=== PATIENT | female | born 1940 | race Two or more races ===

== ENCOUNTER 2025-03-12 15:16 | Emergency (ER) | payer OTHER ==
[~2025-03-12] VITALS: Ht 162.6 cm; Wt 102.1 kg
[2025-03-12] MEDS ORDERED: COZAAR100 MG PO (15:44)
[2025-03-12] MEDS ORDERED: BENZONATATE 200 MG CAPSULE PO ONE (16:30)
[2025-03-12] MEDS ORDERED: LEVALBUTEROL HCL 0.63 MG/3 ML SOLUTION IH ONE (16:30)
[2025-03-12] MEDS ORDERED: IPRATROPIUM BROMIDE 0.5 MG/2.5 ML AMPUL.NEB IH ONE (16:30)
[2025-03-12] MEDS ORDERED: MAGNESIUM SULFATE IN WATER 2 GM/50 ML PIGGYBAG IV ONE (16:30)
[2025-03-12] MEDS ORDERED: METHYLPREDNISOLONE SOD SUCC 125 MG VIAL IV ONE (16:30)
[2025-03-12 16:49] LABS: BASO % 0.8 % (0.1-1.2); EOS # 0.21 (0.04-0.54); EOS % 2.4 % (0.7-7.0); LYMPH # 2.34 (1.18-3.74); LYMPH % 27.2 % (19.3-53.1); MEAN PLATELET VOLUME 9.40 fl (9.4-12.4); MONO # 0.84 (0.24-0.82); MONO % 9.8 % (4.7-12.5); NEUT # 5.09 (1.56-6.13); NEUT % 59.1 % (34.0-71.1); RED CELL DISTRIBUTION WIDTH 14.5 % (11.6-14.4)
[2025-03-12 17:11] LABS: ALT/SGPT 29.0 U/L (12-78); AST/SGOT 18.0 U/L (15-37); BILIRUBIN TOTAL 0.42 mg/dL (0.3-1.2); BUN CREA RATIO 22.0 (7.0-25.0); CREATININE SERUM 0.97 mg/dL (0.55-1.02); GFR 54.84; GLOBULINA 3.3 G/DL (2.4-3.5); GLUCOSE FASTING 103.0 mg/dL (65-100); OSMOLALITY SERUM 279.0 MOSM/KG (275-295)
[2025-03-12 17:22] LABS: COVID-19 AG NEGATIVE (NEGATIVE)
[2025-03-12] MEDS ORDERED: SINGULAIR10 MG PO (19:28)
[2025-03-12] MEDS ORDERED: LEVALBUTER0.63 MG/3 IH (19:28)
[2025-03-12] MEDS ORDERED: BENZONATATE200 M1 PO (19:28)
[2025-03-12 19:36] VITALS: BP 101/64; O2SAT 95
[2025-03-12 20:43] LABS: ABG PH 7.435 (7.35-7.45); ABG PO2 76.5 mmHg (80-100); BICARBONATE 31.9 mmol/l (23-25)
[2025-03-12 20:44] LABS: o2 21 %
== END 2025-03-12 19:38 | disposition home or self-care (01) ==
LOC: ER 16:35
PROVIDERS: General Practice
DX: J45.909 Unspecified asthma, uncomplicated (principal); Z20.822 Contact with and (suspected) exposure to COVID-19; I10 Essential (primary) hypertension; E03.8 Other specified hypothyroidism; Z88.0 Allergy status to penicillin; Z88.2 Allergy status to sulfonamides; Z88.6 Allergy status to analgesic agent
CPT/HCPCS: 36415; 71045; 82803; 94640; 96365; 99283; J3475; J3490